=== PATIENT | female | born 1935 | race Caucasian/White ===

== ENCOUNTER 2021-12-07 00:10 | Inpatient (IN) | payer OTHER ==
[~2021-12-07] VITALS: Ht 160 cm; Wt 64.0 kg
[2021-12-07 00:10] VITALS: BP 142/62
--- NOTE | 2021-12-07 00:18 | NUR ---
DARREN LE TAKEN TO BED #8
--- NOTE | 2021-12-07 00:30 | NUR ---
Note undone in ED - 12/07/21 at 0401 by [email or web address] 86 Y/O FEMALE BIBA FROM [facility], C/O RIGHT LEG PAIN. PER FACILTY AN ULTRASOUND WAS PERFORMED AND CONFIRMED DVT. RIGHT LEG IS RED, WARM, AND SWOLLEN. A/OX4, GCS-15; UNLABORED BREATHING, SPEAKING IN FULL SENTENCES; AMBULATORY WITH ASSISTANCE,WEAK, HX OF FALLS; SKIN IS PINK, WARM, AND DRY. HX: GASTROINTESTINAL HEMORRHAGE, SYNCOPE, HTN, GERD, HLD, POLYMYOSITIS, CAROTID ARTERY STENOSIS, MACULAR DEGENERATION, OSTEOPOROSIS, POLYNEUROPATHY, ANEMIA. NKA Addendum: 12/07/21 at 0400 by [email or web address] Amendment undone in ED - 12/07/21 at 0401 by [email or web address] YASMIN GARCIA TO RULE OUT DVT
[2021-12-07] MEDS ORDERED: ENOXAPARIN 60 MG/0.6 ML SYR SUBQ ONE (00:55)
--- NOTE | 2021-12-07 01:12 | NUR ---
maintenance shop laborer at bedside
--- NOTE | 2021-12-07 01:26 | NUR ---
COVID/SUSAN SWAB COLLECTED AND HANDED TO METAL SPRAYER PRODUCTION
[2021-12-07] MEDS ORDERED: HEPARIN PER PHARMACY MC PRN (01:30)
[2021-12-07 01:33] LABS: BASOPHILS % (AUTO) 0.1 % (0.0-2.0); HEMATOCRIT 22.2 % (36-48); HEMOGLOBIN 7.7 g/dL (12.0-16.0); LYMPHOCYTES # (AUTO) 0.7 K/uL (2.5-16.5); LYMPHOCYTES % (AUTO) 11.1 % (20.5-51.1); MEAN CORPUSCULAR HEMOGLOBIN 33 pg (27-31); MEAN CORPUSCULAR HGB CONC 35 g/dL (33-37); MEAN CORPUSCULAR VOLUME 94.9 fL (80-94); MONOCYTES # (AUTO) 0.4 K/uL (0.8-1.0); MONOCYTES % (AUTO) 6.9 % (1.7-9.3); NEUTROPHILS # (AUTO) 5.1 K/uL (1.8-7.7); NEUTROPHILS % (AUTO) 81.9 % (42.2-75.2); PLATELET COUNT (AUTO) 166 K/uL (140-450); RED BLOOD CELL COUNT(AUTO) 2.34 MIL/uL (4.20-5.40); RED CELL DISTRIBUTION WIDTH 13.6 % (11.6-13.7); WHITE BLOOD COUNT (AUTO) 6.2 K/uL (4.8-10.8)
--- NOTE | 2021-12-07 01:36 | NUR ---
pt's home facility was called to have them fax pt info. spoke with leon key
[2021-12-07 02:06] LABS: ALBUMIN 2.8 g/dL (3.4-5.0); ANION GAP 8.5 (8-16); ASPARTATE AMINOTRANSFERASE 23 U/L (15-37); CARBON DIOXIDE 30.4 mmol/L (21-32); CHLORIDE 103 mmol/L (98-107); CREATININE 0.6 mg/dL (0.6-1.3); GLUCOSE 153 mg/dL (74-106); POTASSIUM 3.9 mmol/L (3.5-5.1); SODIUM SERUM 138 mmol/L (136-145); TOTAL BILIRUBIN 0.4 mg/dL (0.0-1.0); UREA NITROGEN, BLOOD 14 mg/dL (7-18)
[2021-12-07 02:19] LABS: PROTHROMBIN TIME 10.6 secs (10.8-13.4)
[2021-12-07] MEDS: hePARIN / DEXT 5% PREMIX 250 ML IV PRN (03:14)
--- NOTE | 2021-12-07 03:15 | NUR ---
HEPARIN GIVEN AT 0311. COAGULATION STUDY TO BE DRAWN q6HR AT 0911.
--- NOTE | 2021-12-07 03:30 | NUR ---
86 Y/O FEMALE BIBA FROM [facility]-SNF, C/O RIGHT LEG PAIN. PT BROUGHT TO ER TO RULE OUT DVT. RIGHT LEG IS RED, WARM, AND SWOLLEN. A/OX4, GCS-15; UNLABORED BREATHING, SPEAKING IN FULL SENTENCES; AMBULATORY WITH ASSISTANCE,WEAK, HX OF FALLS; SKIN IS PINK, WARM, AND DRY. HX: GASTROINTESTINAL HEMORRHAGE, SYNCOPE, HTN, GERD, HLD, POLYMYOSITIS, CAROTID ARTERY STENOSIS, MACULAR DEGENERATION, OSTEOPOROSIS, POLYNEUROPATHY, ANEMIA. AUDRA
[2021-12-07] MEDS ORDERED: AMLO5TAB PO (03:36)
[2021-12-07] MEDS ORDERED: MECL-303 PO (03:36)
[2021-12-07] MEDS ORDERED: FERR324T11 PO (03:36)
[2021-12-07] MEDS ORDERED: LINA145C PO (03:36)
[2021-12-07] MEDS ORDERED: DOCU-299 PO (03:36)
[2021-12-07] MEDS ORDERED: ACET-2619 PO (03:36)
[2021-12-07] MEDS ORDERED: BISA-213 RC (03:36)
[2021-12-07] MEDS ORDERED: PRED1TAB2 PO (03:36)
[2021-12-07] MEDS ORDERED: MAGN400S60 PO (03:36)
[2021-12-07] MEDS ORDERED: HYDR-5080 PO (03:36)
[2021-12-07] MEDS ORDERED: POTA10TA70 PO (03:36)
[2021-12-07] MEDS ORDERED: PRO5 PO (03:36)
[2021-12-07] MEDS ORDERED: GABA100C PO (03:36)
[2021-12-07] MEDS ORDERED: PANT40EC PO (03:36)
[2021-12-07] MEDS ORDERED: [UNRECOGNIZED DRUG - CODE] (03:36)
--- NOTE | 2021-12-07 07:20 | NUR ---
TRANSFER OF CARE REPORT GIVEN TO BENNY BARTH
--- NOTE | 2021-12-07 07:20 | NUR ---
REPORT RECEIVED FROM WOODY ZAPATA, RECEIVED PT ALERT AND AWAKE, A/OX4, IV IN THE RAC 20G INFUSING HEPARIN 1200UNITS, DENIES ANY PAIN AT THE TIME
--- NOTE | 2021-12-07 07:32 | NUR ---
PT TRANSFERRED TO BED 1
--- NOTE | 2021-12-07 08:09 | NUR ---
CALLED PT DAUGHTER MOSES, PT GIVEN MOBILE PHONE
--- NOTE | 2021-12-07 08:30 | NUR ---
PT OFFERED BREAKFAST, HOB ELEVATED AND FEEDING ASSISTANCE WAS GIVEN. PT TOLERATED BF WELL
--- NOTE | 2021-12-07 09:13 | NUR ---
SPOKE TO SUMMER PRINTER [employer] [facility] NURSE IN CHARGE OF PT IN FACILITY, ANSWERED ALL QUESTIONS REGARDING PT STATUS AND CARE.
[2021-12-07] MEDS ORDERED: POTASSIUM CHLORIDE 10 MEQ TABER PO PRN (09:35)
[2021-12-07] MEDS ORDERED: guaiFENesin DM 200/20 MG-10 ML 10 ML UDC PO PRN (09:35)
[2021-12-07] MEDS ORDERED: ACETAMINOPHEN 325 MG TAB PO PRN (09:35)
[2021-12-07] MEDS ORDERED: DOCUSATE SODIUM 100 MG GELCAP PO PRN (09:35)
[2021-12-07] MEDS ORDERED: ONDANSETRON 4 MG/2 ML VIAL IM/IVP PRN (09:35)
[2021-12-07] MEDS ORDERED: NACL 0.9% 1,000 ML IV SCH (09:35)
[2021-12-07] MEDS ORDERED: ALBUTEROL SULFATE/IPRATROPIU 3 ML SOL IH PRN (09:40)
--- NOTE | 2021-12-07 09:46 | NUR ---
PTT 125.4 CRITICAL RESULT FROM LAB. LARY ZAPATA MADE AWARE TO ADJUST HEPARIN PER PROTOCOL
[2021-12-07 10:12] LABS: CHOL/HDL RATIO 2.6 (1-4.5); FREE T4 (FREE THYROXINE) 0.97 ng/dL (0.76-1.46); MAGNESIUM 1.7 mg/dL (1.8-2.4); PHOSPHORUS 3.2 mg/dL (2.5-4.9); THYROID STIMULATING HORMONE 1.08 uIU/mL (0.34-3.74)
[2021-12-07] MEDS: ZOLPIDEM 5 MG TAB PO PRN (10:22)
[2021-12-07] MEDS: NACL 0.9% 1,000 ML IV SCH ×2 (10:24→20:59)
--- NOTE | 2021-12-07 10:30 | NUR ---
received verbal order from dr daniel regarding another draw of ptt and to refer to pharmacy for heparin dosage
--- NOTE | 2021-12-07 10:45 | NUR ---
spoke to pharmacist latricia, stated that if the dr is going to order another ptt then we can follow the new dose of heparin based on the new ptt
--- NOTE | 2021-12-07 11:25 | NUR ---
REGISTERED NURSE MIDWIFE ALBER AT BEDSIDE
--- NOTE | 2021-12-07 11:25 | NUR ---
SWABS HANDED TO FUNERAL DIRECTOR/EMBALMER/OWNER
--- NOTE | 2021-12-07 11:56 | NUR ---
SPOKE TO MOSES DAUGHTER OF PT, ANSWERED FURTHER QUESTIONS REGARDING PT CARE
--- NOTE | 2021-12-07 12:00 | NUR ---
LUNCH TOLERATED WELL, FEEDING ASSISTANCE
--- NOTE | 2021-12-07 12:16 | NUR ---
SPOKE TO BLACK PHARMACIST REGARDING DOSING OF HEPARIN WITH PTT OF 55.2, STATED TO CONTINUE DOSE OF 1200UNITS
--- NOTE | 2021-12-07 12:23 | NUR ---
PT OFFERED GLASS OF WATER AND 2 WARM BLANKETS
[2021-12-07] MEDS: ALBUTEROL SULFATE/IPRATROPIU 3 ML SOL IH SCH (13:00)
[2021-12-07] MEDS: GABAPENTIN 100 MG CAP PO SCH ×2 (13:49→17:06)
[2021-12-07] MEDS ORDERED: remdesivir COMMUNICATION ORDER 1 EA MISC MC PRN (14:20)
[2021-12-07] MEDS ORDERED: remdesivir CLINICAL MONITORING 1 EA MISC MC PRN (14:25)
[2021-12-07] MEDS ORDERED: REMDESIVIR. 200 MG in NACL 0.9% 100 ML IV ONE (14:25)
[2021-12-07] MEDS ORDERED: REMDESIVIR. 200 MG in NACL 0.9% 100 ML IV SCH (15:00)
--- NOTE | 2021-12-07 15:00 | NUR ---
PT CHANGED, KEPT CLEAN AND DRY
--- NOTE | 2021-12-07 19:49 | NUR ---
DINNER GIVEN TO PATIENT, HOB ELEVATED AND FEEDING ASSISTANCE PERFORMED
--- NOTE | 2021-12-07 21:09 | NUR ---
PATIENT DIAPER CHANGED, KEPT CLEAN AND DRY
--- NOTE | 2021-12-07 23:26 | NUR ---
Pt report given to CHRISTINA ZAPATA. Transfer of care at this time.
--- NOTE | 2021-12-08 04:17 | NUR ---
PT SLEEPING COMFORTABLY IN BED, PT REPOSITIONED ONTO LEFT SIDE AND GIVEN A NEW WARM BLANKET.
--- NOTE | 2021-12-08 06:09 | NUR ---
pt given purewick and repositioned flat (pt prefers to be flat)
--- NOTE | 2021-12-08 07:20 | NUR ---
Pt report given to BENNY BARTH. Transfer of care at this time.
--- NOTE | 2021-12-08 07:22 | NUR ---
REPORT RECEIVED FROM WOODY ZAPATA, TRANSFER OF CARE AT THIS TIME, PT RECEIVED ASLEEP IN BED, RUNNING NS 100CC/HR
[2021-12-08 07:28] LABS: BASOPHILS % (AUTO) 0.4 % (0.0-2.0); EOSINOPHILS # (AUTO) 0.2 K/uL (0-0.4); EOSINOPHILS % (AUTO) 3.1 % (0.0-4.0); HEMATOCRIT 21.1 % (36-48); HEMOGLOBIN 7.2 g/dL (12.0-16.0); LYMPHOCYTES # (AUTO) 1.4 K/uL (2.5-16.5); LYMPHOCYTES % (AUTO) 24.1 % (20.5-51.1); MEAN CORPUSCULAR HEMOGLOBIN 33 pg (27-31); MEAN CORPUSCULAR HGB CONC 34 g/dL (33-37); MONOCYTES # (AUTO) 0.6 K/uL (0.8-1.0); MONOCYTES % (AUTO) 9.9 % (1.7-9.3); NEUTROPHILS # (AUTO) 3.8 K/uL (1.8-7.7); NEUTROPHILS % (AUTO) 62.5 % (42.2-75.2); PLATELET COUNT (AUTO) 192 K/uL (140-450); RED BLOOD CELL COUNT(AUTO) 2.19 MIL/uL (4.20-5.40); RED CELL DISTRIBUTION WIDTH 14.1 % (11.6-13.7)
[2021-12-08 07:31] LABS: ANION GAP 8.4 (8-16); CARBON DIOXIDE 30.8 mmol/L (21-32); CHLORIDE 107 mmol/L (98-107); CREATININE 0.6 mg/dL (0.6-1.3); GLUCOSE 88 mg/dL (74-106); POTASSIUM 3.2 mmol/L (3.5-5.1); SODIUM SERUM 143 mmol/L (136-145); UREA NITROGEN, BLOOD 15 mg/dL (7-18)
[2021-12-08] MEDS: NACL 0.9% 1,000 ML IV SCH ×3 (07:36→20:05)
[2021-12-08 07:37] LABS: PROTHROMBIN TIME 10.9 secs (10.8-13.4)
--- NOTE | 2021-12-08 08:02 | NUR ---
PER BLACK PHARMACIST, START PT ON HEPARIN 1200U/HR, DO NOT GIVE THE BOLUS OF 5000 UNITS
--- NOTE | 2021-12-08 08:07 | NUR ---
PER BLACK PHARMACIST, GIVE PT 2000 U BOLUS AND THEN START 1200 UNITS/HR
[2021-12-08] MEDS: ALBUTEROL SULFATE/IPRATROPIU 3 ML SOL IH SCH ×4 (08:10→19:13)
[2021-12-08] MEDS: hePARIN / DEXT 5% PREMIX 250 ML IV PRN ×2 (08:26→23:18)
--- NOTE | 2021-12-08 08:30 | NUR ---
RESTARTED HEPARIN RUNNING AT 1200U/HR
[2021-12-08] MEDS ORDERED: FERROUS GLUCONATE 324 MG TAB PO SCH (09:00)
[2021-12-08] MEDS: amLODIPine 5 MG TAB PO SCH (09:54)
[2021-12-08] MEDS: GABAPENTIN 100 MG CAP PO SCH ×3 (09:54→18:19)
[2021-12-08] MEDS: PANTOPRAZOLE 40 MG TABEC PO SCH (09:57)
[2021-12-08 10:47] LABS: ALBUMIN 2.3 g/dL (3.4-5.0); BILIRUBIN,DIRECT 0.1 mg/dL (0.0-0.3); TOTAL BILIRUBIN 0.3 mg/dL (0.0-1.0)
[2021-12-08] MEDS: FERROUS GLUCONATE 324 MG TAB PO SCH (11:09)
--- NOTE | 2021-12-08 12:00 | NUR ---
PT OFFERED LUNCH, STATED THAT SHE WASNT FEELING HUNGRY, GIVEN A GLASS OF WATER
[2021-12-08 13:12] LABS: PROTHROMBIN TIME 11.3 secs (10.8-13.4)
--- NOTE | 2021-12-08 13:22 | NUR ---
BREATHING TX NOT GIVEN, DUE TO ELEVATED HEART RATE. BREATH SOUNDS ARE CLEAR, SATURATION IS 98% PRN TX AVAILABLE
[2021-12-08] MEDS: REMDESIVIR. 100 MG in NACL 0.9% 100 ML IV SCH (15:10)
[2021-12-08 16:45] VITALS: BP 126/66
--- NOTE | 2021-12-08 16:45 | NUR ---
RECEIVED PT FROM ER NURSE LARY. PT BROUGHT BY ER NURSE VIA GURNEY. PT IS AWAKE, A&O4 ABLE TO COMMUNICATE NEEDS. BREATHING EVEN AND UNLABORED ON 2L NC SATTING AT 97%. PT ON TELE MONITOR. V/S STABLE. PUREWICK IN PLACE. SKIN IS INTACT, WARM AND DRY TO TOUCH. NOTED BRUISE ON RIGHT THIGH. IV SITE AT RAC 20G RUNNING HEPARIN 1000UNITS AND AND LFA 22G RUNNING NS AT 100ML/HR. MRSA SWAB TAKEN. DROPLET PRECAUTIONS SIGNS PLACED AT THE DOOR. CALL LIGHT WITHIN REACH. SAFETY PRECAUTIONS IN PLACE. WILL CONTINUE TO MONITOR.
--- NOTE | 2021-12-08 17:00 | NUR ---
Patient will be admitted to care of DR ANNA KWAN. Admited to TELEMETRY. Will go to room 114. Belongings list completed. Report to RYAN ZAPATA.
--- NOTE | 2021-12-08 18:15 | NUR ---
WENT INSIDE PT ROOM TO COMPLETE ADMISSION PROCESS. FOUND PT INSIDE THE ROOM WITH DINNER TRAY IN FRONT OF HER AND PT PT STATED, SHE FELT LIKE SHE WAS CHOKING. CONNECT PT TO WALL SUCTION. COLLECTED THICK PHLEGM WITH SOME BITS OF GREEN SALAD AND CARROTS. PT WAS SATTING AT 95-97%. PT STATED SHE FELT LIKE THERE'S STILL SOMETHING ON HER THROAT. CALLED RT. DR KWAN MADE AWARE, AWAITING FOR RESPONSE. ENDORSED TO DISPATCHER RADIO NURSE.
--- NOTE | 2021-12-08 18:23 | NUR ---
RECEIVED PT FROM ER NURSE LARY. PT BROUGHT BY ER NURSE VIA RJOSS. PT IS AWAKE, A&O4 ABLE TO COMMUNICATE NEEDS. BREATHING EVEN AND UNLABORED ON 2L NC SATTING AT 97%. PT ON TELE MONITOR. V/S STABLE. PUREWICK IN PLACE. SKIN IS INTACT, WARM AND DRY TO TOUCH. NOTED BRUISE ON RIGHT THIGH. IV SITE AT RAC 20G RUNNING HEPARIN 1000UNITS AND AND LFA 22G RUNNING NS AT 100ML/HR. MRSA SWAB TAKEN. DROPLET PRECAUTIONS SIGNS PLACED AT THE DOOR. CALL LIGHT WITHIN REACH. SAFETY PRECAUTIONS IN PLACE. WILL CONTINUE TO MONITOR. Addendum: 12/08/21 at 1943 by Puma Cho LVN TIME ERROR
--- NOTE | 2021-12-08 19:25 | NUR ---
ENDORSED PT TO AEROSPACE PHYSIOLOGICAL TECHNICIAN NURSE. ALL NEEDS MET THROUGHOUT SHIFT. PT IS STABLE, SITTING IN BED.
--- NOTE | 2021-12-08 19:26 | NUR ---
RECEIVED PATIENT FROM [facility], PATIENT WAS A NEW ADMISSION AT THE BEGINNING OF THE SHIFT, EVENING NURSING WILL COMPLETE THE ADMISSION. WAS ENDORSED PATIENT CHOKED ON SALAD. WAS PAGED OVER THE MATTER TO ADVISE. AWAITING THE CALL BACK FOR ORDERS. PATIENT WAS ABLE TO MADE NEEDS KNOWN. PATIENT DOES NOT HAVE A WORKING PHONE IN THE ROOM AND NURSING WILL FIND ONT TO SPEAK WITH HER FAMILY. PATIENT WAS ABLE TO GIVE HER HISTORY FOR THE ADMISSION. CALL LIGHT WITH REACH AND ENCOURAGED TO USE FOR ASSISTANCE AND NEEDS. PATIENT UNDERSTOOD AND AGREED. BED AT THE LOWEST LEVEL. SIDE RAIL UP X2 FOR SAFETY AND ADJUSTMENT. NURSING MONITOR. [email or web address]
[2021-12-08 20:00] VITALS: BP 143/69
--- NOTE | 2021-12-08 20:00 | NUR ---
Patient's Plan of Care was discussed and reviewed with ACCESS SERVICES LIBRARIAN: REBECCA MORALES
--- NOTE | 2021-12-08 20:35 | NUR ---
SPOKE WITH PATIENT'S DAUGHTER (MOSES). SHE WAS VERIFIED IN THE CHART BEFORE CONVERSATION WAS INITIATED. COLLECTED PERTAINED INFORMATION FROM DAUGHTER FOR ADMISSION. NURSING WILL SEEK A PHONE SO PATIENT CAN CALL HER DAUGHTER'S TO INFORM OF ANY CHANGES. DAUGHTER HAS [facility] EXTENSION FOR ANY FURTHER QUESTIONS OR NEEDS. [email or web address]
[2021-12-08] MEDS: HYDROcodone/APAP 7.5/325 MG 1 TAB PO PRN (21:21)
--- NOTE | 2021-12-08 23:00 | NUR ---
PATIENT HAS A WORKING PHONE IN HER ROOM ANS SPOKE WITH HER DAUGHTER. PATIENT LAB LEVELS FOR PTT WAS GREATER MICHELLE 150. COVERING RN WAS INFORMED AND THE MEDICATION WILL BE ADJUSTED PER PROTOCOL. [email or web address]
[2021-12-08] MEDS: ZOLPIDEM 5 MG TAB PO PRN (23:32)
[2021-12-09] VITALS: BP 146/62
[2021-12-09 01:19] LABS: PROTHROMBIN TIME 11.6 secs (10.8-13.4)
--- NOTE | 2021-12-09 01:55 | NUR ---
PATIENT NOTED IN BED ASLEEP. CHEST RISING AND FALLING WITHOUT INCIDENT. NO NOTED S/S OF PAIN/DISCOMFORT. PATIENT REMAINED CLEAN AND DRY. BED AT THE LOWEST LEVEL SIDERAILS UP X 2 FOR COMFORT AND SAFETY. HEPARIN DRIP IS COVERED AND RUNNING ACCORDING TO PROTOCOL. NURSING WILL CONTINUE TO MONITOR FOR ANTICIPATED NEEDS. CALL LIGHT WITHIN REACH. [email or web address]
[2021-12-09 04:00] VITALS: BP 146/77
--- NOTE | 2021-12-09 04:08 | NUR ---
PATIENT NOTED IN BED ASLEEP. CHEST RISING AND FALLING WITHOUT INCIDENT. NO NOTED S/S OF PAIN/DISCOMFORT. PATIENT REMAINED CLEAN AND DRY. BED AT THE LOWEST LEVEL SIDERAILS UP X 2 FOR COMFORT AND SAFETY. NURSING WILL CONTINUE TO MONITOR FOR ANTICIPATED NEEDS. CALL LIGHT WITHIN REACH. [email or web address]
[2021-12-09 05:36] LABS: ANION GAP 9.9 (8-16); CARBON DIOXIDE 29.5 mmol/L (21-32); CHLORIDE 106 mmol/L (98-107); CREATININE 0.5 mg/dL (0.6-1.3); GLUCOSE 114 mg/dL (74-106); POTASSIUM 3.4 mmol/L (3.5-5.1); SODIUM SERUM 142 mmol/L (136-145); UREA NITROGEN, BLOOD 13 mg/dL (7-18)
[2021-12-09] MEDS ORDERED: CALCIUM CARBONATE 500 MG TAB.CHEW PO PRN (05:50)
[2021-12-09 05:53] LABS: BASOPHILS % (AUTO) 0.2 % (0.0-2.0); LYMPHOCYTES # (AUTO) 0.9 K/uL (2.5-16.5); LYMPHOCYTES % (AUTO) 16.3 % (20.5-51.1); MEAN CORPUSCULAR HEMOGLOBIN 33 pg (27-31); MEAN CORPUSCULAR HGB CONC 34 g/dL (33-37); MEAN CORPUSCULAR VOLUME 94.9 fL (80-94); MONOCYTES # (AUTO) 0.5 K/uL (0.8-1.0); MONOCYTES % (AUTO) 8.6 % (1.7-9.3); NEUTROPHILS # (AUTO) 3.9 K/uL (1.8-7.7); NEUTROPHILS % (AUTO) 74.9 % (42.2-75.2); PLATELET COUNT (AUTO) 205 K/uL (140-450); RED BLOOD CELL COUNT(AUTO) 2.09 MIL/uL (4.20-5.40); WHITE BLOOD COUNT (AUTO) 5.2 K/uL (4.8-10.8)
[2021-12-09 06:04] LABS: HEMATOCRIT 19.9 % (36-48); HEMOGLOBIN 6.8 g/dL (12.0-16.0)
--- NOTE | 2021-12-09 06:36 | NUR ---
SPOKE WITH DR KWAN REGARDING PATIENT H AND H AND HE WANTS 1 UNIT OF PRBC INFUSED. HEPARIN LEVELS ARE NOTED AT 25. MD WAS CALLED BACK TO HAVE THE HOLD THE HEPARIN BOLUS UNTIL CALL BACK FROM MD TO ADVISE. [email or web address]
--- NOTE | 2021-12-09 06:42 | NUR ---
DR KWAN CALLED BACK REGARDING THE PROTOCOL FOR THE HEPARIN DRIP AND STATED HE GAVE ORDER FOR BLOOD AND PHARMACY SHOULD ADVISE FOR HEPARIN PROTOCOL. OUTSIDE PHARMACY WAS CALLED AND ADVISED TO CALL INTERNAL PHARMACY IN 15 MINUTES. [email or web address]
[2021-12-09] MEDS: ALBUTEROL SULFATE/IPRATROPIU 3 ML SOL IH SCH ×2 (06:53→12:23)
--- NOTE | 2021-12-09 07:20 | NUR ---
ENDORSED PATIENT TO RAYMOND ZAPATA, PATIENT HAS NEW ORDERS FOR PRBC 1 UNIT. AWAITING LAB TO DRAW BLOOD FOR SCREEN AND TYPE MATCH. HEPARIN LEVEL IS NOTED A 25 BUT HEPARIN WILL BE HELD UNIT HAS BEEN INFUSED. NEXT LAB LEVELS FOR HEPARIN AFTER BLOOD TO RESUME AT 12 PM AND ADHERE TO PROTOCOL FOR HEPARIN. [email or web address]
--- NOTE | 2021-12-09 07:35 | NUR ---
RECEIVED REPORT FROM LABORATORY MECHANIC HELPER FOR CONTINUITY CARE. PT WILL START 1 UNITS PACKED RED BLOOD CELL, CALLED TO LAB FOR THIS ORDER AT THIS TIME. PENDING LAB DRAW BLOOD FOR PTT AT NOON 12, WILL CONTINUE WITH HEPARIN DRIP PROTOCOL.
[2021-12-09 08:00] VITALS: BP 119/88
--- NOTE | 2021-12-09 08:24 | NUR ---
CALLED LAB IN REGARDS TO NEEDING TYPE AND SCREEN TO BE DRAWN FOR STAT ORDER. STATES THEY ARE ON THEIR WAY
[2021-12-09] MEDS: FERROUS GLUCONATE 324 MG TAB PO SCH (08:34)
[2021-12-09] MEDS: PANTOPRAZOLE 40 MG TABEC PO SCH (08:34)
[2021-12-09] MEDS: GABAPENTIN 100 MG CAP PO SCH ×3 (08:34→16:41)
--- NOTE | 2021-12-09 08:34 | NUR ---
PT. WITH LOW TIM SCALE AT MODERATE TO HIGH RISK, CONTINUE TO FOLLOW PRESSURE INJURY PREVENTION INTERVENTIONS. -POSITIONING: TURN AND REPOSITION PATIENT Q 2H OR SOONER USE PILLOWS TO KEEP BONY PROMINENCES FROM DIRECT CONTACT WITH SURFACES USE REPOSITIONING WEDGES TO PROVIDE 30-DEGREE ANGLE FOR SIDE LYING POSITIONS OFFLOADING OR FOAM DRESSING TO ALL TUBING TO PREVENT MEDICAL DEVICES RELATED PRESSURE INJURY -RE-EVALUATING AND MANAGING INCONTINENCE MONITOR SKIN CONDITION DURING POSITION CHANGE DO NOT MASSAGE REDNESS, BONY PROMINENCES FREQUENT JULY-CARE AND PROVIDE BARRIER CREAMS PRN IF SOILING MOISTURE CONTROL BY OFFER BED RODAS/URINAL /ABSORBENT PAD TO WICK AND HOLD MOISTURE KEEP SKIN DRY AND PROTECT FROM FRICTION -MANAGE FRICTION/SHEAR/MOBILITY KEEP HOB AT THE LOWEST LEVEL OF ELEVATION NO MORE THAN 30 DEGREE UNLESS OTHERWISE CONTRAINDICATED USE LIFT SHEET OR TRANSFER DEVICE TO MOVE PATIENT AND PREVENT LATERAL SHEER. PROTECT HEELS, ELBOWS BONY PROMINENCES WITH SKIN BERRIES OR FOAM DRESSING IF EXPOSED TO FRICTION OFFLOAD BILATERAL HEELS BY PLACING PILLOWS UNDER CALVES AT ALL TIMES, UNLESS OTHERWISE CONTRAINDICATED -PRESSURE REDISTRIBUTION SURFACE THERAPY DEONNA ISOFLEX MATTRESS -NUTRITION: PLEASE FOLLOW RD RECOMMENDATIONS AND OFFER NUTRITION SUPPLEMENTS IF ORDERED. PLEASE CONTACT WOUND CARE NURSE FOR ANY QUESTION AND CHANGE OF WOUND CONDITION
--- NOTE | 2021-12-09 08:34 | NUR ---
MEDICATION ADMINISTERED AT THIS TIME, PT TOLERATED WELL. INSTRUCT PT USE CALL LIGHT IF SHE NEED ANY HELP. ALL SAFETY MEASURE IN PLACE, CALL LIGHT WITHIN REACH, WILL CONTINUE TO MONITOR.
[2021-12-09] MEDS: amLODIPine 5 MG TAB PO SCH (08:35)
--- NOTE | 2021-12-09 08:45 | NUR ---
UA COLLECTED AND LABELED. MD AT BEDSIDE, CONSENT OBTAINED FOR BLOOD TRANSFUSION.
--- NOTE | 2021-12-09 09:30 | NUR ---
EDUCATION PROVIDED ON HOW TO ANSWER ROOM PHONE, AND HOW TO CALL OUT. PT NODDED IN UNDERSTANDING. ALL SAFETY MEASURES IN PLACE, CALL LIGHT/ ROOM PHONE WITHIN REACH. WILL CONTINUE TO MONITOR.
[2021-12-09 10:17] LABS: ALBUMIN 2.6 g/dL (3.4-5.0); BILIRUBIN,DIRECT 0.1 mg/dL (0.0-0.3); TOTAL BILIRUBIN 0.4 mg/dL (0.0-1.0)
--- NOTE | 2021-12-09 10:28 | NUR ---
CALLED LAB IN REGARDS TO TYPE AND SCREEN STILL PENDING, STATES THEY ARE STILL WORKING ON IT.
[2021-12-09 12:00] VITALS: BP 129/51
--- NOTE | 2021-12-09 12:01 | NUR ---
EDUCATED PT ON NEED TO COLLECT SPUTUM CULTURE. PT STATED SHE IS UNABLE TO COUGH SPUTUM UP AT THIS TIME, BUT STATED SHE WILL WHEN SHE IS ABLE TO. SPECIMEN CONTAINER WITHIN REACH. ALSO EDUCATED ON NEED TO COLLECT STOOL SAMPLE TO ASSESS FOR BLOOD, STATED SHE WILL NOTIFY US WHEN SHE HAS A BM.
[2021-12-09] MEDS: HYDROcodone/APAP 7.5/325 MG 1 TAB PO PRN ×2 (12:13→23:27)
--- NOTE | 2021-12-09 12:13 | NUR ---
PT C/O PAIN 8/10 PAIN ON HER BACK, MEDICATED PT WITH NORCO PO PRN ORDERED.
--- NOTE | 2021-12-09 13:05 | NUR ---
START BLOOD TRANSFUSION PER MD ORDER, PT PRE TRANSFUSION VS NORMAL, VERIFIED WITH SECOND RN AT PT'S BEDSIDE BEFORE START BLOOD TRANSFUSION. WILL CONTINUE TO MONITOR AT BEDSIDE FOR S/S OF REACTION.
--- NOTE | 2021-12-09 13:20 | NUR ---
PT HAS NO S/S OF BLOOD TRANSFUSION REACTION AT THIS TIME. PT IS RESTING ON BED WITH EYE CLOSED. ASK PT HOW IS SHE FEEL NOW, PT STATE " I AM FINE". CALL LIGHT WITHIN REACH, EDUCATE PT TO CALL NURSE FOR ANY S/S OF REACTION, SUCH ITCHING, FEELING HOT, HEADACHE, N/V. WILL CONTINUE TO MONITOR.
[2021-12-09 13:29] LABS: APPEARANCE,URINE CLOUDY (CLEAR); BILIRUBIN,URINE NEGATIVE (NEGATIVE); BLOOD, URINE TRACE-L (NEGATIVE); COLOR,URINE YELLOW (YELLOW); LEUKOCYTE ESTERASE ,URINE TRACE (NEGATIVE); NITRITE, URINE POSITIVE (NEGATIVE); UGLUCOSE 1+ (NEGATIVE)
[2021-12-09 13:54] LABS: OTHER CASTS, URINE None Seen /LPF (None Seen)
--- NOTE | 2021-12-09 14:20 | NUR ---
VS CHECKED WITHIN NORMAL, PT DENIED ANY PAIN OR DISCOMFORT, NO TRANSFUSION REACTION NOTED AT THIS TIME, WILL CONTINUE TO MONITOR,CALL LIGHT WITHIN REACH
--- NOTE | 2021-12-09 15:20 | NUR ---
VS WITHIN NORMAL RANGE. ASSISTED WITH DRINKING WATER, PT DENIED PAIN OR ANY DISCOMFORT, NO BLOOD TRANSFUSION REACTION NOTED AT THIS TIME. CALL LIGHT WITHIN REACH, WILL CONTINUE TO MONITOR.
[2021-12-09 16:00] VITALS: BP 126/64
--- NOTE | 2021-12-09 16:00 | NUR ---
WROTE DAUGHTERS PHONE NUMBERS DOWN ON A PIECE OF PAPER, WITH INSTRUCTIONS ON HOW TO CALL OUT FROM THE ROOM PHONE. VERBALIZED, DEMONSTRATED, AND PT DEMONSTRATED HOW TO USE TELEPHONE. PT CALLED SARAHI PHONE NUMBER, UPON LEAVING ROOM PT TALKING TO FAMILY. PT LAYING FLAT, REPORTS IT BEING MORE COMFORTABLE FOR HER BACK. EDUCATION WAS ALSO PROVIDED IN REGARDS TO PT BEING COVID POSITIVE, WHAT ISOLATION MEANS, AND CLUSTER OF CARE DUE TO ISOLATION. PT STATES SHE IS FRUSTRATED DUE TO HAVING NOBODY TO TALK TO. ONCE MORE EDUCATION PROVIDED ON EXPOSURE, FAMILIES PHONE NUMBER WRITTEN DOWN, AND HOW TO CALL SHE STATED SHE UNDERSTOOD.
--- NOTE | 2021-12-09 16:20 | NUR ---
BLOOD TRANSFUSION FINISHED AT THIS TIME. PT TOLERATED WELL, VS CHECKED WITHIN NORMAL. PT ASK FOR DRINKING WATER, ASSISTED PT UP AND HELPED WITH DRINKING WATER. CALL LIGHT WITHIN REACH, WILL CONTINUE TO MONITOR.
[2021-12-09] MEDS: REMDESIVIR. 100 MG in NACL 0.9% 100 ML IV SCH (16:39)
--- NOTE | 2021-12-09 18:30 | NUR ---
AT BEDSIDE ASSIST PT HAVING HER DINNER, PT HAS TROUBLE SWALLOW, PT HAS 1 CUP OF ICE CREAM AND ASK FOR MORE ICE CREAM, PROVIDE PT ONE MORE ICE CREAM, ASSIST FEEDING, PT TOLERATED WELL. PT ON 2L OXYGEN VIA NC, ALL SAFETY MEASURE IN PLACE, CALL LIGHT WITHIN REACH.
--- NOTE | 2021-12-09 18:43 | NUR ---
NOTIFIED MD REGARDING RECOMMENDATION OF SWALLOW EVAL, AND PUREE DIET. PENDING NEW ORDER. ALL NEEDS HAVE BEEN MET THROUGHOUT THE SHIFT.
--- NOTE | 2021-12-09 18:57 | NUR ---
WILL ENDORSE TO PAPER REWINDER OPERATOR FOR CONTINUE CARE. POINT OF CARE WILL BE DISCUSSED WITH PAPER REWINDER OPERATOR.
--- NOTE | 2021-12-09 19:00 | NUR ---
WILL ENDORSE PENDING NEW ORDER FROM MD FOR SWALLOW EVAL AND PUREE DIET RECOMMENDATION.
[2021-12-09 19:06] LABS: PROTHROMBIN TIME 11.9 secs (10.8-13.4)
--- NOTE | 2021-12-09 19:10 | NUR ---
RECEIVED ENDORSEMENT FROM DAY SHIFT NURSE FOR CONTINUITY OF PT CARE.
[2021-12-09 20:00] VITALS: BP 122/68
[2021-12-09] MEDS: NACL 0.9% 1,000 ML IV SCH (20:05)
--- NOTE | 2021-12-09 22:30 | NUR ---
PT AWAKE, ALERT AND RESPONSIVE VERBALLY. PERSONAL CARE GIVEN. PT IS STABLE.
[2021-12-09] MEDS: ZOLPIDEM 5 MG TAB PO PRN (23:24)
--- NOTE | 2021-12-09 23:24 | NUR ---
PATIENT COMPLAINTS OF UNABLE TO SLEEP, SLEEPING PILL ADMINISTERED ORDERED.
--- NOTE | 2021-12-09 23:27 | NUR ---
PT COMPLAINTS OF BACK PAIN 11/01, PAIN MEDICATION NORCO ADMINISTERED ORDERED.
[2021-12-10] VITALS: BP 137/74
--- NOTE | 2021-12-10 00:27 | NUR ---
PT IS ASLEEP, NO FACIAL GRIMACING OR DISCOMFORT.
[2021-12-10 04:00] VITALS: BP 122/59
[2021-12-10] MEDS: ALBUTEROL SULFATE/IPRATROPIU 3 ML SOL IH SCH ×2 (07:00→13:00)
--- NOTE | 2021-12-10 07:00 | NUR ---
PT STATED SHE DIDN'T WANT HER BREATHING TREATMENT AT THIS TIME, BUT WOULD LIKE IT IN A BIT. PT IS CLEAR/ DIMINISHED. HER SATURATION IS 92%-96% ON 2L NASAL CANNULA. NOT DISTRESS. WILL CONTINUE TO MONITOR.
[2021-12-10 07:27] LABS: BASOPHILS % (AUTO) 0.1 % (0.0-2.0); HEMATOCRIT 28.1 % (36-48); HEMOGLOBIN 9.5 g/dL (12.0-16.0); MEAN CORPUSCULAR HEMOGLOBIN 31 pg (27-31); MEAN CORPUSCULAR HGB CONC 34 g/dL (33-37); MEAN CORPUSCULAR VOLUME 93.2 fL (80-94); MONOCYTES # (AUTO) 0.4 K/uL (0.8-1.0); MONOCYTES % (AUTO) 7.7 % (1.7-9.3); NEUTROPHILS # (AUTO) 4.3 K/uL (1.8-7.7); NEUTROPHILS % (AUTO) 75.2 % (42.2-75.2); PLATELET COUNT (AUTO) 197 K/uL (140-450); RED BLOOD CELL COUNT(AUTO) 3.02 MIL/uL (4.20-5.40); RED CELL DISTRIBUTION WIDTH 15.4 % (11.6-13.7); WHITE BLOOD COUNT (AUTO) 5.7 K/uL (4.8-10.8)
[2021-12-10 07:34] LABS: ALBUMIN 2.8 g/dL (3.4-5.0); ANION GAP 9.9 (8-16); ASPARTATE AMINOTRANSFERASE 17 U/L (15-37); CARBON DIOXIDE 29.8 mmol/L (21-32); CHLORIDE 106 mmol/L (98-107); CREATININE 0.5 mg/dL (0.6-1.3); GLUCOSE 112 mg/dL (74-106); POTASSIUM 3.7 mmol/L (3.5-5.1); SODIUM SERUM 142 mmol/L (136-145); TOTAL BILIRUBIN 0.7 mg/dL (0.0-1.0); UREA NITROGEN, BLOOD 12 mg/dL (7-18)
--- NOTE | 2021-12-10 07:35 | NUR ---
RECEIVED REPORT FROM GENERAL SUPERVISOR NURSEVIOLET: PT ON DROPLET PRECAUTIONS, IN BED, ALERT AND ORIENTED X 4. PT IS BREATHING EFFORTLESSLY ON O2 AT 2L VIA NC. IV ACCESS AT LEFT FOREARM WITH NS IN PROGRESS AT 35 ML/HR. OTHER IV ACCESS AT LEFT ANTECUBITAL AREA, SALINE LOCKED. PT VERBALIZED COMFORT AND DENIED PAIN. CALL LIGHT IS WITHIN REACH. PLAN OF CARE CONTINUES. Addendum: 12/10/21 at 0804 by Acacia Block RN OTHER IV ACCESS IS AT RIGHT ANTECUBITAL AREA, SALINE LOCKED. PUREWICK DEVICE IN PLACE FOR URINE DRAINAGE.
[2021-12-10 08:00] VITALS: BP 154/86
[2021-12-10] MEDS: FERROUS GLUCONATE 324 MG TAB PO SCH (09:00)
[2021-12-10] MEDS: amLODIPine 5 MG TAB PO SCH (09:00)
[2021-12-10] MEDS: GABAPENTIN 100 MG CAP PO SCH ×2 (09:00→12:41)
[2021-12-10] MEDS: PANTOPRAZOLE 40 MG TABEC PO SCH (09:00)
[2021-12-10] MEDS ORDERED: RIVAROXABAN 10 MG TAB PO SCH (09:00)
--- NOTE | 2021-12-10 09:30 | NUR ---
CONTINUES TO DENY PAIN AND VERBALIZE COMFORT.
--- NOTE | 2021-12-10 10:26 | NUR ---
DC PLANNING: THE PATIENT PRESENTED FROM [facility] WITH C/O DVT TO RLE, D DIMER > 5000, COVID POSITIVE. STARTED ON HEPARIN GTT, REMDESIVIR, DECADRON AND IVF'S. ON 2L O2 NC, SATS OF 92-96%. LUIS SPOKE WITH THE PATIENTS DAUGHTER MOSES BY PHONE. THE PATIENT WAS IN THE RESIDENTIAL SIDE OF [facility] BUT WENT TO THE [facility], [facility] FOR A FEW DAYS BEFORE BEING ADMITTED HERE. THE PATIENT WAS ON P.T. AND O.T. SERVICES AND DID NOT HAVE ISSUES WITH PO INTAKE. MOSES STATES THAT THE PATIENTS DAUGHTER SARAHI IS FLYING IN TODAY TO VISIT THE PATIENT, LUIS ENDORSED THAT THE PATIENT WILL DC BACK TO SNF TODAY, MOSES IS IN AGREEMENT WITH PLAN. LUIS SPOKE WITH EMMIE AT [facility], PACKET FAXED TO HER. THEY WILL ACCEPT THE PATIENT BACK BUT ARE MAKING ROOM CHANGES. TRANSPORT ARRANGED FOR 1800 WITH [facility] ([phone]) WITH O2. AUGUST WILL CALL WITH ROOM ASSIGNMENT AND MD TO FOLLOW. LUIS WILL FOLLOW. Addendum: 12/10/21 at 1432 by Julianna Boyce CM DC PLANNING: PATIENT GOING TO ROOM 23, DR KHALIL TO FOLLOW. [facility] ASKING FOR EARLIER ARRIVAL TIME, [facility] TO PICK THE PATIENT UP AT 1500. LUIS ENDORSED TO THE PATIENTS NURSE KHAN. NUMBER TO CALL REPORT IS [phone] AND ASK FOR CHARGE NURSE. LUIS WILL FOLLOW.
--- NOTE | 2021-12-10 10:38 | NUR ---
AM MEDS ADMIN ORDERED. PT DENIED PAIN OR DISCOMFORT. NO SIGNS OR SYMPTOMS OF COVID-19. REPORTED THAT MD INFORMED RE DISCHARGE HOME TODAY.
--- NOTE | 2021-12-10 11:30 | NUR ---
PT FOR DISCHARGE TODAY, PER MD ORDER. PT IS VERBALIZING DESIRE TO LEAVE AND STATES WILL GET TO SEE DAUGHTER. PER CM TRANSPORTATION ARRANGED FOR 1800.
[2021-12-10 12:00] VITALS: BP 134/57
[2021-12-10] MEDS ORDERED: ASPI-1205 PO (12:19)
[2021-12-10] MEDS ORDERED: RIVA20TA PO (12:20)
--- NOTE | 2021-12-10 13:07 | NUR ---
PT DIDN'T WANT HER BREATHING TREATMENT AT THIS TIME, SHE WAS TIRED AND WANTED TO SLEEP. SATURATION IS 97% ON 2L NASAL CANNULA. EVEN CHEST RISE AND CLEAR/ DIMINISHED BREATH SOUNDS NOTED.
--- NOTE | 2021-12-10 14:30 | NUR ---
PER CM, FACILITY WANTS PT EARLIER THAN 1800 SO TRANSPORTATION IS ON THE WAY.
[2021-12-10 15:06] LABS: T4 (THYROXINE) 6.1 ug/dL (4.5-12.0)
[2021-12-10 15:13] VITALS: BP 134/57
--- NOTE | 2021-12-10 15:35 | NUR ---
PT IS READY TO LEAVE WITH TRANSPORTERS X 2. IV ACCESS LINES AND ARM BANDS REMOVED. PUREWICK URINARY DEVICE ALSO REMOVED AND ABDOMEN IS SOFT & NONDISTENDED. SKIN IS INTACT, WARN AND DRY. PT IS BREATHING EFFORTLESSLY AND REQUESTS TO LEAVE WITHOUT HAVING O2 IN USE--PER TRANSPORTERS FACILITY IS SHORT DISTANCE AWAY AND WILL TAKE ONLY APPROX 10 MINUTES. PT CONTINUES TO VERBALIZE VERBALIZES COMFORT AND DENY PAIN.
== END 2021-12-10 15:45 | disposition home or self-care (01) | DRG 299 ==
LOC: MED 00:10 → MTU 01:34
PROVIDERS: ADMIT Family Medicine; ATTEND Family Medicine
PROC: XW033E5 Introduction of Remdesivir Anti-infective into Peripheral Vein, Percutaneous Approach, New Technology Group 5 (ICD-10-PCS; 2021-12-08)
PROC: 30233N1 Transfusion of Nonautologous Red Blood Cells into Peripheral Vein, Percutaneous Approach (ICD-10-PCS; principal; 2021-12-09)
DX: I82.403 Acute embolism and thrombosis of unspecified deep veins of lower extremity, bilateral (principal); E43 Unspecified severe protein-calorie malnutrition; U07.1 COVID-19; D63.8 Anemia in other chronic diseases classified elsewhere; E83.42 Hypomagnesemia; R74.01 Elevation of levels of liver transaminase levels; M60.9 Myositis, unspecified; Z90.49 Acquired absence of other specified parts of digestive tract; Z90.710 Acquired absence of both cervix and uterus; Z68.25 Body mass index [BMI] 25.0-25.9, adult
CPT/HCPCS: 36415; 71045; 80048; 80053; 80076; 81001; 82150; 83036; 83615; 83690; 83735; 83880; 84100; 84436; 84439; 84443; 84479; 84484; 85025; 85379; 85610; 85651; 85730; 86140; 86886; 86900; 86901; 86920; 87081; 87086; 87635-QW; 92526; 93005; 93925; 93970; 94640; 96374; 99285; J1644; J1650; J7030; P9016; Q0092